=== PATIENT | female | born 1985 | race Caucasian/White ===

== ENCOUNTER 2017-02-02 14:11 | Emergency (ER) | payer MEDICAID ==
[~2017-02-02] VITALS: Ht 170.2 cm; Wt 78.0 kg
[2017-02-02 14:13] VITALS: BP 122/84
[2017-02-02 15:14] LABS: ASPARTATE AMINO TRANSFERASE 18 U/L (15-37); BLOOD UREA NITROGEN 12 mg/dL (7-18)
== END 2017-02-02 15:39 | disposition home or self-care (01) ==
LOC: ED 15:30
DX: O23.13 Infections of bladder in pregnancy, third trimester (principal); O99.613 Diseases of the digestive system complicating pregnancy, third trimester; R11.0 Nausea; M54.5 Low back pain; Z3A.30 30 weeks gestation of pregnancy; Z87.440 Personal history of urinary (tract) infections; Z98.890 Other specified postprocedural states
CPT/HCPCS: 36415; 76805; 80053; 81001; 83690; 85025; 87086

== ENCOUNTER 2017-02-02 16:05 | Emergency (ER) | payer MEDICAID ==
[~2017-02-02] VITALS: Ht 170.2 cm; Wt 78.3 kg
[2017-02-02 16:18] VITALS: BP 111/71
== END 2017-02-02 16:25 | disposition left against medical advice (07) ==
LOC: ED 16:10
DX: O26.893 Other specified pregnancy related conditions, third trimester (principal); R10.9 Unspecified abdominal pain; Z3A.28 28 weeks gestation of pregnancy; Z53.21 Procedure and treatment not carried out due to patient leaving prior to being seen by health care provider